=== PATIENT | female | born 1960 | race Caucasian/White ===

== ENCOUNTER → 2017-03-02 | Outpatient (CLI) | payer BC ==
[2015-11-20 15:16] VITALS: BP 105/72
[~2017-03-02] MED LIST: ALBU8.5H8 IH; ASPI-612 PO; ASPI325T8 PO; CYCL-331 PO; GABA-585 PO; IBUP-1227 PO; INDA2.5T PO; IRBE150T PO; LEVO125T5 PO; METO25TA9 PO; METO50TA2 PO; POLY17PO5 PO; POTA20PA PO; POTA20TA12 PO; PRED20TA PO; PROM118S2 PO; SIMV40TA PO; VALA1000 PO
--- NOTE | 2017-03-02 10:38 | RAD ---
Abdominal ultrasound, 03/02/2017: History: Right upper quadrant pain The gallbladder is within normal limits in size. There is no sonographic evidence of cholelithiasis. The gallbladder mccall are not thickened. No bile duct dilatation is seen. The liver demonstrates generalized increased echogenicity, most commonly due to fatty change. No hepatic mass is evident. The spleen measures 11.2 cm in length. The visualized portions of the pancreas and both kidneys are unremarkable. The abdominal aorta is of normal caliber. The visualized portions of the inferior vena cava are unremarkable. No free fluid is evident in the abdomen. IMPRESSION: 1. Increased hepatic echogenicity compatible with hepatic steatosis. 2. No acute abdominal abnormality is detected.
== END | disposition home or self-care (01) ==
LOC: US 09:15
PROVIDERS: ATTEND Family Medicine
DX: K76.0 Fatty (change of) liver, not elsewhere classified (principal)
CPT/HCPCS: 76700

== ENCOUNTER 2017-03-12 22:38 | Emergency (ER) | payer BC ==
[~2017-03-12] VITALS: Ht 167.6 cm; Wt 98.9 kg
--- NOTE | 2017-03-12 22:40 | ED.ADGEN ---
Past History Past Medical History: CHF, Hypertension, Other Past Surgical History: , Hysterectomy, Tonsillectomy Smoking: Non-smoker Alcohol Use: None Drug Use: None Adult General Chief Complaint Chief Complaint Right ankle injury HPI HPI Patient is a 57 year old female who presents with ankle injury. She was in her yard walking across of it and stepped in a hole that she knew was there. She fell forwards. She only complains about right ankle injury and high tib-fib pain on the right. She denies losing consciousness hitting her head or having neck pain. Review of Systems Review of Systems Constitutional: Denies fever or chills [] Eyes: Denies change in visual acuity, redness, or eye pain [] HENT: Denies nasal congestion or sore throat [] Respiratory: Denies cough or shortness of breath [] Cardiovascular: No additional information not addressed in HPI [] GI: Denies abdominal pain, nausea, vomiting, bloody stools or diarrhea [] : Denies dysuria or hematuria [] Musculoskeletal: Denies back pain, positive right ankle pain. Integument: Denies rash or skin lesions [] Neurologic: Denies headache, focal weakness or sensory changes [] Endocrine: Denies polyuria or polydipsia [] Current Medications Current Medications Current Medications Medications (Trade) Dose Ordered Sig/Nara Start Time Stop Time Status Last Admin Dose Admin Acetaminophen/ Hydrocodone Bitart (Lortab 5/325) 2 tab 1X ONCE 03/12/17 23:15 03/12/17 23:16 DC 03/12/17 23:04 2 TAB Allergies Allergies Allergies Coded Allergies Type Severity Reaction Last Updated Verified lisinopril Allergy Mild 11/19/15 Yes nifedipine Allergy Mild 11/19/15 Yes Physical Exam Physical Exam Constitutional: Well developed, well nourished, no acute distress, non-toxic appearance. [] HENT: Normocephalic, atraumatic, bilateral external ears normal, oropharynx moist, no oral exudates, nose normal. [] Eyes: PERRLA, EOMI, conjunctiva normal, no discharge. [] Neck: Normal range of motion, no tenderness, supple, no stridor. [] Cardiovascular:Heart rate regular rhythm, no murmur [] Lungs & Thorax: Bilateral breath sounds clear to auscultation [] Abdomen: Bowel sounds normal, soft, no tenderness, no masses, no pulsatile masses. [] Skin: Warm, dry, no erythema, no rash. [] Back: No tenderness, no CVA tenderness. [] Extremities: Tender to palpation with swelling of the right lateral malleolus, no obvious deformity, dorsal pedis pulse 2+, no cyanosis, no clubbing, ROM intact, no edema. [] Neurologic: Alert and oriented X 3, normal motor function, normal sensory function, no focal deficits noted. [] Psychologic: Affect normal, judgement normal, mood normal. [] Current Patient Data Vital Signs Vital Signs Date Time Temp Pulse Resp B/P (MAP) Pulse Ox O2 Delivery O2 Flow Rate FiO2 03/12/17 22:53 97.7 87 18 18 Room Air EKG EKG [] Radiology/Procedures Radiology/Procedures Reviews of the right tib-fib, 3 views of the right ankle does not show any fractures, foreign bodies, soft tissue abnormalities, as interpreted by me. Course & Med Decision Making Course & Med Decision Making Pertinent Labs and Imaging studies reviewed. (See chart for details) X-rays are negative for any obvious fractures, patient being discharged with an Aircast, crutches, [place]. She is instructed to follow-up with an orthopedic surgeon if not better within 5-7 days. Certainly not to drive a car or taking [place]. He also instructed on rest elevation and ice for the next 24 hours. Return precautions given she is agreeable Plan B discharged in stable condition this time. Final Impression Final Impression Right Ankle sprain Problems: Dragon Disclaimer Dragon Disclaimer This electronic medical record was generated, in whole or in part, using a voice recognition dictation system. NICOLE JOSHUA MD Mar 12, 2017 22:39
[2017-03-12 22:53] VITALS: BP 108/71
[2017-03-12] MEDS ORDERED: HYDROcodone/APAP 5/325MG 1 TAB TABLET PO ONE (23:15)
[2017-03-12] MEDS ORDERED: HYDR-971 PO (23:28)
--- NOTE | 2017-03-13 07:43 | RAD ---
Indication: Fall with severe right ankle and lower leg pain. Time of exam 2307 hours. 3 views of the right tibia and fibula were obtained. Alignment at the knee and ankle appears normal. The tibia and fibula appear intact. No fractures are seen. Impression: No acute bony abnormality is detected.
--- NOTE | 2017-03-13 07:45 | RAD ---
Indication: Fall with right ankle injury. Time of exam 2306 hours. 3 views of the right ankle were obtained. The alignment is normal. Ankle mortise is well-maintained. The talar dome is smooth. No fracture or dislocation is seen. There is a large plantar calcaneal spur. There may be some soft tissue swelling laterally. Impression: Soft tissue swelling. No acute bony abnormality is detected.
== END 2017-03-12 23:40 | disposition home or self-care (01) ==
LOC: ER 22:38
DX: S93.431A Sprain of tibiofibular ligament of right ankle, initial encounter (principal); I11.0 Hypertensive heart disease with heart failure; I50.9 Heart failure, unspecified; Z88.8 Allergy status to other drugs, medicaments and biological substances; Y92.096 Garden or yard of other non-institutional residence as the place of occurrence of the external cause; Y99.8 Other external cause status; Y93.01 Activity, walking, marching and hiking; W18.31XA Fall on same level due to stepping on an object, initial encounter
CPT/HCPCS: 29515; 73590; 73610; 99284

== ENCOUNTER → 2018-01-06 | Day surgery (SDC) | payer BC ==
[~2018-01-06] MED LIST changes: +ATROPINE 0.5 MG/5 ML DISP.SYRIN. IV PRN; +ESOM40CA PO; +HYDR-971 PO; +IV RINGERS SOLUTION,LACTATED 1,000 ML IV SCH; +LIDOCAINE 2% PF Vial for OR 5 ML VIAL. ONE; +METO-239 PO; -METO25TA9 PO; -METO50TA2 PO; +METO50TA6 PO; +MULT1TAB6 PO; +NALOXONE 0.4 MG/ML VIAL. IV PRN; +ONDANSETRON PF 4 MG/2 ML VIAL. IV PRN; +PROPOFOL 40 ML IV ONE
[2018-01-06 11:09] VITALS: BP 135/78
== END ==
LOC: SURG 09:07
PROVIDERS: ATTEND Internal Medicine Gastroenterology
DX: Z12.11 Encounter for screening for malignant neoplasm of colon (principal); K21.9 Gastro-esophageal reflux disease without esophagitis; I11.0 Hypertensive heart disease with heart failure; I50.9 Heart failure, unspecified; G47.30 Sleep apnea, unspecified; E78.5 Hyperlipidemia, unspecified; Z88.8 Allergy status to other drugs, medicaments and biological substances
CPT/HCPCS: 45378; J2704; J7120; J2001

== ENCOUNTER 2018-07-06 16:01 | Inpatient (IN) | payer BC ==
[~2018-07-06] VITALS: Ht 167.6 cm; Wt 98.9 kg
[~2018-07-06 16:01] MED LIST changes: -ATROPINE 0.5 MG/5 ML DISP.SYRIN. IV PRN; -IV RINGERS SOLUTION,LACTATED 1,000 ML IV SCH; -LIDOCAINE 2% PF Vial for OR 5 ML VIAL. ONE; -NALOXONE 0.4 MG/ML VIAL. IV PRN; -ONDANSETRON PF 4 MG/2 ML VIAL. IV PRN; -POTA20PA PO; +POTA20PA30 PO; -PROM118S2 PO; +PROM118S5 PO; -PROPOFOL 40 ML IV ONE
[2018-07-06 16:39] LABS: BASO % 0 % (0-3); EOS # 0.3 x10^3/uL (0.0-0.7); EOS % 3 % (0-3); HEMATOCRIT 40.2 % (36.0-47.0); HEMOGLOBIN 13.4 g/dL (12.0-15.5); LYMPH % 33 % (24-48); MEAN CORPUSCULAR HEMOGLOBIN 30 pg (25-35); MEAN CORPUSCULAR HGB CONC 33 g/dL (31-37); MEAN CORPUSCULAR VOLUME 91 fL (79-100); MONO # 0.7 x10^3/uL (0.0-1.1); MONO % 8 % (0-9); NEUT # 4.9 x10^3uL (1.8-7.7); NEUT % 55 % (31-73); PLATELET COUNT 249 x10^3/uL (140-400); RED BLOOD COUNT 4.44 x10^6/uL (3.50-5.40); RED CELL DISTRIBUTION WIDTH 14.8 % (11.5-14.5); WHITE BLOOD COUNT 8.9 x10^3/uL (4.0-11.0)
--- NOTE | 2018-07-06 16:50 | RAD ---
EXAM: CHEST 1 VIEW History: Shortness of breath COMPARISON: 11/19/2015 TECHNIQUE: Single portable radiograph of the chest FINDINGS: The cardiac silhouette is unremarkable. The lungs are clear bilaterally. The costophrenic sulci are clear and well demarcated. IMPRESSION: No radiographic evidence of an acute cardiopulmonary process. Electronically signed by: Julio César Story MD (07/06/2018 4:47 PM) [id number]
[2018-07-06 17:05] LABS: ALBUMIN 3.9 g/dL (3.4-5.0); ALBUMIN/GLOBULIN RATIO 0.9 (1.0-1.7); CALCIUM 9.5 mg/dL (8.5-10.1); CREATININE 0.9 mg/dL (0.6-1.0); GFR 64.5; MAGNESIUM 1.7 mg/dL (1.8-2.4); TOTAL BILIRUBIN 0.7 mg/dL (0.2-1.0); TOTAL PROTEIN 8.1 g/dL (6.4-8.2)
--- NOTE | 2018-07-06 17:28 | EKG ---
[address] [address] Test Date: 2018-07-06 Test Time: 16:04:32 Pat Name: MARI MANCERA Department: Room: Gender: F Billing Rep: : 1960 Requested By: SANCHEZ WINCHESTER Order Number: [id number] Reading MD: Jace Tan Measurements Intervals [place] Rate: 90 P: -32 FL: 164 QRS: 2 QRSD: 70 T: 3 QT: 390 QTc: 481 Interpretive Statements SINUS RHYTHM RIGHT BUNDLE BRANCH BLOCK ST ABNORMALITY, POSSIBLE HIGH LATERAL SUBENDOCARDIAL INJURY PROLONGED QT ABNORMAL ECG Electronically Signed On 07-11-2018 11:51:21 CDT by Jace Tan
[2018-07-06] MEDS ORDERED: MAGNESIUM OXIDE 400 MG TABLET PO ONE (17:30)
[2018-07-06] MEDS ORDERED: POTASSIUM CHLORIDE 20 MEQ TABLET.ER. PO ONE (17:30)
[2018-07-06] MEDS ORDERED: IOHEXOL 300 MG/ML 75 ML VIAL. IV ONE (17:45)
[2018-07-06] MEDS ORDERED: CONTRAST GIVEN MC PRN (18:00)
--- NOTE | 2018-07-06 18:01 | PHYS DOC ---
Past History Past Medical History: CHF, Heart Disease, Hypertension, Hypothyroid Past Surgical History: Hysterectomy, Tonsillectomy Smoking: Non-smoker Alcohol Use: Rarely Drug Use: None Adult General Chief Complaint Chief Complaint: CHEST PAIN HPI HPI Patient is a 58 year old female who presents with appearing of chest pain and shortness of breath. Patient states she was at fourth and at 1500 felt sudden onset of substernal chest pain with radiation to her back associated with shortness of breath and not feeling good that resolved at arrival to ER but still doesn't feel right like her normal condition. Patient has history of hypertension and prediabetes condition with family history of coronary artery disease. Review of Systems Review of Systems Constitutional: Denies fever or chills [] Eyes: Denies change in visual acuity, redness, or eye pain [] HENT: Denies nasal congestion or sore throat [] Respiratory: Denies cough or shortness of breath [] Cardiovascular: No additional information not addressed in HPI [] GI: Denies abdominal pain, nausea, vomiting, bloody stools or diarrhea [] : Denies dysuria or hematuria [] Musculoskeletal: Denies back pain or joint pain [] Integument: Denies rash or skin lesions [] Neurologic: Denies headache, focal weakness or sensory changes [] Endocrine: Denies polyuria or polydipsia [] All other systems were reviewed and found to be within normal limits, except as documented in this note. Current Medications Current Medications Current Medications Medications (Trade) Dose Ordered Sig/Nara Start Time Stop Time Status Last Admin Dose Admin Iohexol (Omnipaque 300 Mg/ml) 75 ml 1X ONCE 07/06/18 17:45 07/06/18 17:46 UNV Magnesium Oxide (Magnesium Oxide) 400 mg 1X ONCE 07/06/18 17:30 07/06/18 17:31 DC Potassium Chloride (Klor-Con) 40 meq 1X ONCE 07/06/18 17:30 07/06/18 17:31 DC Allergies Allergies Allergies Coded Allergies Type Severity Reaction Last Updated Verified lisinopril Allergy Mild 11/19/15 Yes nifedipine Allergy Mild 11/19/15 Yes Physical Exam Physical Exam Constitutional: Well developed, well nourished, mild distress, non-toxic appearance. [] HENT: Normocephalic, atraumatic, oropharynx moist, no oral exudates, nose normal. [] Eyes: PERRLA, EOMI, conjunctiva normal, no discharge. [] Neck: Normal range of motion, no tenderness, supple, no stridor. [] Cardiovascular:Heart rate regular rhythm, no murmur [] Lungs & Thorax: Bilateral breath sounds clear to auscultation [] Abdomen: Bowel sounds normal, soft, no tenderness, no masses, no pulsatile masses. [] Skin: Warm, dry, no erythema, no rash. [] Back: No tenderness, no CVA tenderness. [] Extremities: No tenderness, no cyanosis, no clubbing, ROM intact, no edema. [] Neurologic: Alert and oriented X 3, normal motor function, normal sensory function, no focal deficits noted. [] Psychologic: Affect normal, judgement normal, mood normal. [] Current Patient Data Vital Signs Vital Signs Date Time Temp Pulse Resp B/P (MAP) Pulse Ox O2 Delivery O2 Flow Rate FiO2 07/06/18 16:35 97.7 93 18 96 Room Air Lab Results Laboratory Tests Test 07/06/18 16:23 White Blood Count 8.9 x10^3/uL (4.0-11.0) Red Blood Count 4.44 x10^6/uL (3.50-5.40) Hemoglobin 13.4 g/dL (12.0-15.5) Hematocrit 40.2 % (36.0-47.0) Mean Corpuscular Volume 91 fL (79-100) Mean Corpuscular Hemoglobin 30 pg (25-35) Mean Corpuscular Hemoglobin Concent 33 g/dL (31-37) Red Cell Distribution Width 14.8 % (11.5-14.5) H Platelet Count 249 x10^3/uL (140-400) Neutrophils (%) (Auto) 55 % (31-73) Lymphocytes (%) (Auto) 33 % (24-48) Monocytes (%) (Auto) 8 % (0-9) Eosinophils (%) (Auto) 3 % (0-3) Basophils (%) (Auto) 0 % (0-3) Neutrophils # (Auto) 4.9 x10^3uL (1.8-7.7) Lymphocytes # (Auto) 3.0 x10^3/uL (1.0-4.8) Monocytes # (Auto) 0.7 x10^3/uL (0.0-1.1) Eosinophils # (Auto) 0.3 x10^3/uL (0.0-0.7) Basophils # (Auto) 0.0 x10^3/uL (0.0-0.2) D-Dimer (Tawny) 0.53 mg/L (0.00-0.50) H Sodium Level 141 mmol/L (136-145) Potassium Level 3.0 mmol/L (3.5-5.1) L Chloride Level 101 mmol/L (98-107) Carbon Dioxide Level 33 mmol/L (21-32) H Anion Gap 7 (6-14) Blood Urea Nitrogen 18 mg/dL (7-20) Creatinine 0.9 mg/dL (0.6-1.0) Estimated GFR (Cockcroft-Gault) 64.5 BUN/Creatinine Ratio 20 (6-20) Glucose Level 196 mg/dL (70-99) H Calcium Level 9.5 mg/dL (8.5-10.1) Magnesium Level 1.7 mg/dL (1.8-2.4) L Total Bilirubin 0.7 mg/dL (0.2-1.0) Aspartate Amino Transferase (AST) 37 U/L (15-37) Alanine Aminotransferase (ALT) 58 U/L (14-59) Alkaline Phosphatase 88 U/L (46-116) Creatine Kinase 138 U/L (26-192) Troponin I Quantitative < 0.017 ng/mL (0-0.055) AS-Ydu-G-Type Natriuretic Peptide 19 pg/mL (0-124) Total Protein 8.1 g/dL (6.4-8.2) Albumin 3.9 g/dL (3.4-5.0) Albumin/Globulin Ratio 0.9 (1.0-1.7) L Lipase 122 U/L (73-393) EKG EKG EKG interpreted by me. EKG at 1604 showed normal sinus rhythm at rate of 90, prolonged QT, nonspecific ST and T wave abnormality unchanged from the previous EKG on 11/19/2015 Radiology/Procedures Radiology/Procedures [address] [address] IMAGING REPORT Signed PATIENT: MARI MANCERA S ACCOUNT: [id number] : 1960 LOCATION: ER AGE: 58 SEX: F EXAM STATUS: REG ER ORD. PHYSICIAN: SANCHEZ WINCHESTER MD REASON: chest pain and shortness of breath PROCEDURE: PORTABLE CHEST 1V EXAM: CHEST 1 VIEW History: Shortness of breath COMPARISON: 11/19/2015 TECHNIQUE: Single portable radiograph of the chest FINDINGS: The cardiac silhouette is unremarkable. The lungs are clear bilaterally. The costophrenic sulci are clear and well demarcated. IMPRESSION: No radiographic evidence of an acute cardiopulmonary process. Electronically signed by: Julio César Koenig MD (07/06/2018 4:47 PM) [id number] DICTATED AND SIGNED BY: JULIO CÉSAR KOENIG MD DATE: 07/06/18 1646 CC: MANJIT POLO MD; SANCHEZ WINCHESTER MD ~ Course & Med Decision Making Course & Med Decision Making Pertinent Labs and Imaging studies reviewed. (See chart for details) Evaluation of patient in ER showed 58-year-old female patient with several cardiac risk factor with complaining of chest pain and shortness of breath that resolved at arrival to ER but not feeling right hip normal. New change since EKG did not show any new change from the EKG in 2016. She had potassium of 3.0 and magnesium of 1.7 and elevation of d-dimer with pending CT of chest. Patient treated with oral potassium and magnesium Dr. Carrasco accepted admission at 1718. Dragon Disclaimer Dragon Disclaimer This electronic medical record was generated, in whole or in part, using a voice recognition dictation system. Departure Departure: Impression: Primary Impression: Acute chest pain Additional Impressions: Hypokalemia Hypomagnesemia Elevated d-dimer Hyperglycemia Disposition: ADMITTED INPATIENT (admitted at 1751) Admitting Physician: Other (Dr. Gregorio Carrasco accepted admission at 1750) Condition: IMPROVED Referrals: MANJIT POLO MD (PCP) Problem Qualifiers SANCHEZ WINCHESTER MD Jul 06, 2018 18:01
--- NOTE | 2018-07-06 18:59 | RAD ---
Exam performed: CT pulmonary angiogram of the chest with contrast. Date: 07/06/2018. Comparison: CT angiogram chest from 11/29/2015) chest from earlier today Indication: Chest pain and elevated d-dimer and shortness of breath. Technique: Contiguous helical acquisitions are obtained through the chest during intravenous administration of [ 75 ] cc of [ Omnipaque 300 ] . [Sagittal and coronal MIP images were obtained and reviewed Findings: The structures at the thoracic inlet including both lobes of the thyroid gland appear normal. Pulmonary arterial opacification is adequate to evaluate for pulmonary embolus. There is no evidence for pulmonary embolism. The heart is normal in size. No pericardial effusion is seen. No mediastinal or hilar lymphadenopathy is seen. There is a linear left basilar opacity likely atelectasis, otherwise No infiltrates or pleural effusions are seen. No pulmonary nodules are detected. Upper abdominal structures appear unremarkable. Osseous structures appear intact. Impression: 1. Study is negative for pulmonary embolism. 2. Linear left basilar atelectasis otherwise unremarkable exam. PQRS Compliance Statement: One or more of the following individualized dose reduction techniques were utilized for this examination: 1. Automated exposure control 2. Adjustment of the mA and/or kV according to patient size 3. Use of iterative reconstruction technique Electronically signed by: Marita Leon MD (07/06/2018 6:55 PM) [facility]
[2018-07-06 20:08] VITALS: BP 149/98
[2018-07-06] MEDS ORDERED: POTA20TA4 PO (20:18)
[2018-07-06] MEDS ORDERED: INDA2.5T PO (20:18)
[2018-07-06] MEDS ORDERED: ACETAMINOPHEN 500 MG TABLET PO PRN (21:30)
[2018-07-06] MEDS: POTASSIUM CHLORIDE 20 MEQ TABLET.ER. PO SCH (21:30)
[2018-07-06 21:49] VITALS: BP 106/68
[2018-07-06] MEDS: SIMVASTATIN 40 MG TABLET. PO SCH (21:57)
[2018-07-06] MEDS: METOPROLOL SUCC 24HR ER 25 MG TAB.ER.24H. PO SCH (21:58)
[2018-07-06 22:39] VITALS: BP 103/67
[2018-07-07 04:39] LABS: BASO % 0 % (0-3); EOS # 0.3 x10^3/uL (0.0-0.7); EOS % 4 % (0-3); HEMATOCRIT 39.7 % (36.0-47.0); HEMOGLOBIN 13.3 g/dL (12.0-15.5); LYMPH # 3.1 x10^3/uL (1.0-4.8); LYMPH % 36 % (24-48); MEAN CORPUSCULAR HEMOGLOBIN 30 pg (25-35); MEAN CORPUSCULAR HGB CONC 34 g/dL (31-37); MEAN CORPUSCULAR VOLUME 91 fL (79-100); MONO # 0.6 x10^3/uL (0.0-1.1); MONO % 7 % (0-9); NEUT # 4.6 x10^3uL (1.8-7.7); NEUT % 53 % (31-73); PLATELET COUNT 236 x10^3/uL (140-400); RED BLOOD COUNT 4.38 x10^6/uL (3.50-5.40); RED CELL DISTRIBUTION WIDTH 14.7 % (11.5-14.5); WHITE BLOOD COUNT 8.6 x10^3/uL (4.0-11.0)
[2018-07-07 04:52] LABS: ALBUMIN 3.5 g/dL (3.4-5.0); ALBUMIN/GLOBULIN RATIO 0.9 (1.0-1.7); CALCIUM 9.7 mg/dL (8.5-10.1); CREATININE 0.9 mg/dL (0.6-1.0); GFR 64.5; TOTAL BILIRUBIN 0.8 mg/dL (0.2-1.0); TOTAL PROTEIN 7.6 g/dL (6.4-8.2)
[2018-07-07 05:03] VITALS: BP 121/74
[2018-07-07] MEDS: LEVOTHYROXINE 125 MCG TABLET PO SCH (06:58)
[2018-07-07] MEDS ORDERED: PANTOPRAZOLE 40 MG TABLET. PO SCH (09:00)
[2018-07-07] MEDS: POLYETHYLENE GLYCOL 3350 17 GM PACKET. PO SCH (09:00)
--- NOTE | 2018-07-07 09:33 | PDOC2 ---
CONSULT Date of Admission DATE: 07/07/18 TIME: 09:29 Reason for Consult: cp Problem List Problems Medical Problems: (1) Acute chest pain Status: Acute (2) Elevated d-dimer Status: Acute (3) Hyperglycemia Status: Acute (4) Hypokalemia Status: Acute (5) Hypomagnesemia Status: Acute History of Present Illness Ms Ho is a 58 year old female who presents with complaints of chest discomfort. She was at work ([employer]) when she began to have mild chest pressure, felt hot, face was flushed, nauseated and short of breath. She describes pressure mid to right chest without radiation and feeling like she could not get a deep enough breath. She reports symptoms lasted about 20 minutes and resolved spontaneously just prior to arrival to the ED. She reports dyspnea on exertion with 1 flight of stairs over the last year. About 6 months ago she began taking the elevator at work rather than the stairs for this reason. She denies symptoms with ADLs. She does no regular exercise. She denies any prior symptoms of chest discomfort that she can remember. she reports occasional episodes of lightheadedness that she thought was related to not eating but denies any syncope. She denies any significant symptoms of palpitations. She denies congestive symptoms but does report swelling in her feet and legs often. Cardiovascular: CHF, HTN, hyperipidemia Pulmonary: Other (ALVARO) GI: GERD Endocrine: Hypothyroidism, Other (low blood sugar) Past Surgical History: , Hysterectomy Family History: Cancer, Coronary Artery Disease, Diabetes, Hypertension Social History remote history of tobaccoism, no significant ETOH, no illicit drugs. Current Medications Current Medications Potassium Chloride (Klor-Con) 40 meq 1X ONCE PO Last administered on at 17:30; Start 07/06/18 at 17:30; Stop 07/06/18 at 17:31; Status DC Magnesium Oxide (Magnesium Oxide) 400 mg 1X ONCE PO Last administered on at 18:06; Start 07/06/18 at 17:30; Stop 07/06/18 at 17:31; Status DC Iohexol (Omnipaque 300 Mg/ml) 75 ml 1X ONCE IV Last administered on 07/06/18at 18:01; Start 07/06/18 at 17:45; Stop 07/06/18 at 17:53; Status DC Info (Do NOT chart on this entry -- for MONITORING) 1 each PRN DAILY PRN MC SEE COMMENTS; Start 07/06/18 at 18:00; Stop 07/08/18 at 17:59 Acetaminophen (Tylenol) 500 mg PRN Q6HRS PRN PO PAIN / TEMP; Start 07/06/18 at 21:30 Metoprolol Succinate (Toprol Xl) 25 mg BID PO Last administered on 07/06/18at 21 :58; Start 07/06/18 at 21:30 Potassium Chloride (Klor-Con) 20 meq TID PO ; Start 07/06/18 at 21:30 Simvastatin (Zocor) 40 mg HS PO Last administered on 07/06/18at 21:57; Start at 21:30 Aspirin (Aspirin Enteric Coated) 81 mg DAILYWBKFT PO ; Start 07/07/18 at 08:00 Pantoprazole Sodium (Protonix) 40 mg QODAY PO ; Start 07/07/18 at 09:00 Indapamide (Lozol) 5 mg DAILY PO ; Start 07/07/18 at 09:00 Losartan Potassium (Cozaar) 50 mg DAILY PO ; Start 07/07/18 at 09:00 Levothyroxine Sodium (Synthroid) 125 mcg DAILY07 PO Last administered on at 06:58; Start 07/07/18 at 07:00 Polyethylene Glycol (miraLAX) 17 gm DAILY PO ; Start 07/07/18 at 09:00 Influenza Virus Vaccine (Afluria Trivalent [id number] Syringe) 0.5 ml ONCE ONCE VAX IM ; Start 07/07/18 at 09:00; Stop 07/07/18 at 09:01; Status DC Active Scripts Active Metoprolol Succinate ( Xl ) (Metoprolol Succinate) 25 Mg Tab.er.24h 25 Mg PO BID Reported Indapamide 2.5 Mg Tablet 5 Mg PO DAILY Klor-Con M20 (Potassium Chloride) 20 Meq Tab.er.prt 20 Meq PO TID Centrum Complete Multivit Tab (Multivitamin/Iron/Folic Acid) 1 Each Tablet 1 Each PO Miralax (Polyethylene Glycol 3350) 17 Gm Powd.pack 1 Packet PO DAILY Nexium Capsule (Esomeprazole Magnesium) 40 Mg Capsule.dr 1 Cap PO QODAY Avapro (Irbesartan) 150 Mg Tablet 150 Mg PO DAILY LAST DOSE GIVEN: DATE: TODAY TIME: AM NEXT DOSE DUE: DATE: TOMORROW TIME: AM Levothyroxine Sodium 125 Mcg Tablet 125 Mcg PO DAILY07 LAST DOSE GIVEN: DATE: TODAY TIME: BEFORE BREAKFAST NEXT DOSE DUE: DATE: TOMORROW TIME: BEFORE BREAKFAST Zocor (Simvastatin) 40 Mg Tablet 40 Mg PO HS Aspirin Ec (Aspirin) 81 Mg Tablet.dr 1 Tab PO DAILY LAST DOSE GIVEN: DATE: TODAY TIME: AM NEXT DOSE DUE: DATE: TOMORROW TIME: AM Allergies: Coded Allergies: lisinopril (Verified Allergy, Mild, 11/19/15) nifedipine (Verified Allergy, Mild, 11/19/15) Review of System as per HPI or negative General: Alert, Oriented X3, Cooperative, No acute distress HEENT: Atraumatic, EOMI, Mucous membr. moist/pink Lungs: Clear to auscultation Heart: Regular rate, Normal S1, Normal S2, Other (no gallops, clicks or rubs) Abdomen: Normal bowel sounds, Soft, No tenderness Extremities: No cyanosis, Normal pulses, Other (trace edema) Neuro: Normal speech, Strength at 5/5 X4 ext Psych/Mental Status: Mental status NL, Mood NL VITALS Vital Signs Date Time Temp Pulse Resp B/P (MAP) Pulse Ox O2 Delivery O2 Flow Rate FiO2 07/07/18 05:03 97.6 63 18 121/74 (90) 93 Room Air 07/06/18 22:39 2.0 Labs Laboratory Tests Test 07/06/18 16:23 07/06/18 20:15 07/06/18 22:13 07/07/18 04:26 White Blood Count 8.9 x10^3/uL (4.0-11.0) 8.6 x10^3/uL (4.0-11.0) Red Blood Count 4.44 x10^6/uL (3.50-5.40) 4.38 x10^6/uL (3.50-5.40) Hemoglobin 13.4 g/dL (12.0-15.5) 13.3 g/dL (12.0-15.5) Hematocrit 40.2 % (36.0-47.0) 39.7 % (36.0-47.0) Mean Corpuscular Volume 91 fL (79-100) 91 fL (79-100) Mean Corpuscular Hemoglobin 30 pg (25-35) 30 pg (25-35) Mean Corpuscular Hemoglobin Concent 33 g/dL (31-37) 34 g/dL (31-37) Red Cell Distribution Width 14.8 % (11.5-14.5) 14.7 % (11.5-14.5) Platelet Count 249 x10^3/uL (140-400) 236 x10^3/uL (140-400) Neutrophils (%) (Auto) 55 % (31-73) 53 % (31-73) Lymphocytes (%) (Auto) 33 % (24-48) 36 % (24-48) Monocytes (%) (Auto) 8 % (0-9) 7 % (0-9) Eosinophils (%) (Auto) 3 % (0-3) 4 % (0-3) Basophils (%) (Auto) 0 % (0-3) 0 % (0-3) Neutrophils # (Auto) 4.9 x10^3uL (1.8-7.7) 4.6 x10^3uL (1.8-7.7) Lymphocytes # (Auto) 3.0 x10^3/uL (1.0-4.8) 3.1 x10^3/uL (1.0-4.8) Monocytes # (Auto) 0.7 x10^3/uL (0.0-1.1) 0.6 x10^3/uL (0.0-1.1) Eosinophils # (Auto) 0.3 x10^3/uL (0.0-0.7) 0.3 x10^3/uL (0.0-0.7) Basophils # (Auto) 0.0 x10^3/uL (0.0-0.2) 0.0 x10^3/uL (0.0-0.2) D-Dimer (Tawny) 0.53 mg/L (0.00-0.50) Sodium Level 141 mmol/L (136-145) 143 mmol/L (136-145) Potassium Level 3.0 mmol/L (3.5-5.1) 4.0 mmol/L (3.5-5.1) Chloride Level 101 mmol/L (98-107) 102 mmol/L (98-107) Carbon Dioxide Level 33 mmol/L (21-32) 34 mmol/L (21-32) Anion Gap 7 (6-14) 7 (6-14) Blood Urea Nitrogen 18 mg/dL (7-20) 18 mg/dL (7-20) Creatinine 0.9 mg/dL (0.6-1.0) 0.9 mg/dL (0.6-1.0) Estimated GFR (Cockcroft-Gault) 64.5 64.5 BUN/Creatinine Ratio 20 (6-20) 20 (6-20) Glucose Level 196 mg/dL (70-99) 112 mg/dL (70-99) Calcium Level 9.5 mg/dL (8.5-10.1) 9.7 mg/dL (8.5-10.1) Magnesium Level 1.7 mg/dL (1.8-2.4) Total Bilirubin 0.7 mg/dL (0.2-1.0) 0.8 mg/dL (0.2-1.0) Aspartate Amino Transf (AST/SGOT) 37 U/L (15-37) 34 U/L (15-37) Alanine Aminotransferase (ALT/SGPT) 58 U/L (14-59) 53 U/L (14-59) Alkaline Phosphatase 88 U/L (46-116) 80 U/L (46-116) Creatine Kinase 138 U/L (26-192) Troponin I Quantitative < 0.017 ng/mL (0-0.055) < 0.017 ng/mL (0-0.055) < 0.017 ng/mL (0-0.055) HE-Ika-L-Type Natriuretic Peptide 19 pg/mL (0-124) Total Protein 8.1 g/dL (6.4-8.2) 7.6 g/dL (6.4-8.2) Albumin 3.9 g/dL (3.4-5.0) 3.5 g/dL (3.4-5.0) Albumin/Globulin Ratio 0.9 (1.0-1.7) 0.9 (1.0-1.7) Lipase 122 U/L (73-393) Glucose (Fingerstick) 94 mg/dL (70-99) Images CTA negative for PE CXR no acute abn EKG - sinus rhythm, RBBB, non specific abn Assessment/Plan 1. chest pain - ID ruled out. check echo. ambulate. NPO after midnight, no caffeine starting now and plan for MPI in am. Continue current medications to include beta halley, aspirin, statin. 2. abn ekg - no acute ischemic changes, MPI in am 3. HTN - controlled on current meds though she reported elevated pressure 170s during her cp episode. 4. HLD - check lipids, continue statin. 5. prediabetes - per [employer] ROB[employer] Jul 07, 2018 09:33
[2018-07-07 10:28] VITALS: BP 134/83
[2018-07-07] MEDS: ASPIRIN ENTERIC COATED 81 MG TABLET.DR. PO SCH (10:30)
[2018-07-07] MEDS: POTASSIUM CHLORIDE 20 MEQ TABLET.ER. PO SCH ×3 (10:30→20:21)
[2018-07-07] MEDS: LOSARTAN 50 MG TABLET. PO SCH (10:30)
[2018-07-07] MEDS: INDAPAMIDE 1.25 MG TABLET PO SCH (10:31)
[2018-07-07] MEDS: METOPROLOL SUCC 24HR ER 25 MG TAB.ER.24H. PO SCH ×2 (10:31→20:22)
[2018-07-07 16:36] VITALS: BP 122/81
--- NOTE | 2018-07-07 17:30 | PDOC1 ---
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 She states that while she was working on a patient she had a sudden onset of chest pressure radiating to her back, she became nauseous with shortness of breath and her face became flushed. Symptoms force her to stop working and leave the treatment room, the dentists checked her blood pressure which she says was markedly elevated at the time. They urged her to go to the emergency department for evaluation. She did not want to go by [facility] and she called her spouse who came and picked her up, symptoms lasted approximately 20 minutes and resolved prior to arriving at the emergency department. In the emergency department her EKG was reportedly normal sinus rhythm at 90 bpm with prolonged QT and nonspecific ST T changes.(Unchanged from 11/19/15 study). Chest x-ray unremarkable , potassium 3.0, magnesium 1.7, d-dimer 0.53. Due to her symptoms and risk factors she was admitted for further evaluation and cardiology consultation. Overnight with supplementation her potassium improved to 4.0, cardiac enzymes came back negative 3 and LDL elevated at 147. Cardiology has scheduled stress test for tomorrow morning. Past Medical History: Cardiovascular: CHF, HTN, hyperipidemia Pulmonary: Other (obstructive sleep apnea) GI: GERD Endocrine: Hypothyroidism, Other ("prediabetes", obesity) Past Surgical History: PSH: section Family History: Family History Coronary artery disease, diabetes Family History: Cancer, Coronary Artery Disease, Diabetes, Hypertension Social History: Smoke: Quit Alcohol: none Drugs: None Allergies: Allergies: Coded Allergies: lisinopril (Verified Allergy, Mild, 11/19/15) nifedipine (Verified Allergy, Mild, 11/19/15) Current Medications: Current Medications: Current Medications Medications (Trade) Dose Ordered Sig/Nara Start Time Stop Time Status Last Admin Dose Admin Acetaminophen (Tylenol) 500 mg PRN Q6HRS PRN 07/06/18 21:30 07/07/18 13:12 500 MG Aspirin (Aspirin Enteric Coated) 81 mg DAILYWBKFT 07/07/18 08:00 07/07/18 10:30 81 MG Indapamide (Lozol) 5 mg DAILY 07/07/18 09:00 07/07/18 10:31 5 MG Influenza Virus Vaccine (Afluria Trivalent [id number] Syringe) 0.5 ml ONCE ONCE 07/07/18 09:00 07/07/18 09:01 DC 07/07/18 10:49 0.5 ML Info (Do NOT chart on this entry -- for MONITORING) 1 each PRN DAILY PRN 07/06/18 18:00 07/08/18 17:59 Iohexol (Omnipaque 300 Mg/ml) 75 ml 1X ONCE 07/06/18 17:45 07/06/18 17:53 DC 07/06/18 18:01 75 ML Levothyroxine Sodium (Synthroid) 125 mcg DAILY07 07/07/18 07:00 07/07/18 06:58 125 MCG Losartan Potassium (Cozaar) 50 mg DAILY 07/07/18 09:00 07/07/18 10:30 50 MG Magnesium Oxide (Magnesium Oxide) 400 mg 1X ONCE 07/06/18 17:30 07/06/18 17:31 DC 07/06/18 18:06 400 MG Metoprolol Succinate (Toprol Xl) 25 mg BID 07/06/18 21:30 07/07/18 10:31 25 MG Pantoprazole Sodium (Protonix) 40 mg QODAY 07/07/18 09:00 07/07/18 10:30 40 MG Polyethylene Glycol (miraLAX) 17 gm DAILY 07/07/18 09:00 Potassium Chloride (Klor-Con) 20 meq TID 07/06/18 21:30 07/07/18 15:16 20 MEQ Simvastatin (Zocor) 40 mg HS 07/06/18 21:30 07/06/18 21:57 40 MG ROS: ROS: Constitutional: Denies fever or chills [] Eyes: Denies change in visual acuity, redness, or eye pain [] HENT: Denies nasal congestion or sore throat [] Respiratory: Denies cough positive shortness of breath [] Cardiovascular: No additional information not addressed in HPI [] GI: Denies abdominal pain, vomiting, bloody stools or diarrhea, positive for nausea [] : Denies dysuria or hematuria [] Musculoskeletal: Denies back pain or joint pain [] Integument: Denies rash or skin lesions [] Neurologic: Denies headache, focal weakness or sensory changes [] Endocrine: Denies polyuria or polydipsia [] All other systems were reviewed and found to be within normal limits, except as documented in this note. PE: PE: Gen.: Alert, pleasant, no apparent distress HEENT: Normocephalic atraumatic, PERRLA EOMI, no scleral icterus, oral mucosa pink and moist Neck: Supple, no lymphadenopathy, nontender Cardiovascular: Normal S1 and S2 no murmurs Pulmonary: Lungs are clear bilaterally with good air movement no respiratory distress Abdomen: Soft nontender non-distended, bowel sounds present no masses Extremities: No clubbing, cyanosis trace edema bilaterally Neuro: Alert and oriented 3, cranial nerves II through XII grossly intact, no lateralizing neuro deficits Skin: Warm, dry Vitals: Vitals: Vital Signs Date Time Temp Pulse Resp B/P (MAP) Pulse Ox O2 Delivery O2 Flow Rate FiO2 07/07/18 16:36 98.2 65 18 122/81 (95) 94 Room Air 07/07/18 10:28 2.0 Labs: Labs: Laboratory Tests Test 07/06/18 16:23 07/06/18 20:15 07/06/18 22:13 07/07/18 04:26 White Blood Count 8.9 x10^3/uL (4.0-11.0) 8.6 x10^3/uL (4.0-11.0) Red Blood Count 4.44 x10^6/uL (3.50-5.40) 4.38 x10^6/uL (3.50-5.40) Hemoglobin 13.4 g/dL (12.0-15.5) 13.3 g/dL (12.0-15.5) Hematocrit 40.2 % (36.0-47.0) 39.7 % (36.0-47.0) Mean Corpuscular Volume 91 fL (79-100) 91 fL (79-100) Mean Corpuscular Hemoglobin 30 pg (25-35) 30 pg (25-35) Mean Corpuscular Hemoglobin Concent 33 g/dL (31-37) 34 g/dL (31-37) Red Cell Distribution Width 14.8 % (11.5-14.5) 14.7 % (11.5-14.5) Platelet Count 249 x10^3/uL (140-400) 236 x10^3/uL (140-400) Neutrophils (%) (Auto) 55 % (31-73) 53 % (31-73) Lymphocytes (%) (Auto) 33 % (24-48) 36 % (24-48) Monocytes (%) (Auto) 8 % (0-9) 7 % (0-9) Eosinophils (%) (Auto) 3 % (0-3) 4 % (0-3) Basophils (%) (Auto) 0 % (0-3) 0 % (0-3) Neutrophils # (Auto) 4.9 x10^3uL (1.8-7.7) 4.6 x10^3uL (1.8-7.7) Lymphocytes # (Auto) 3.0 x10^3/uL (1.0-4.8) 3.1 x10^3/uL (1.0-4.8) Monocytes # (Auto) 0.7 x10^3/uL (0.0-1.1) 0.6 x10^3/uL (0.0-1.1) Eosinophils # (Auto) 0.3 x10^3/uL (0.0-0.7) 0.3 x10^3/uL (0.0-0.7) Basophils # (Auto) 0.0 x10^3/uL (0.0-0.2) 0.0 x10^3/uL (0.0-0.2) D-Dimer (Tawny) 0.53 mg/L (0.00-0.50) Sodium Level 141 mmol/L (136-145) 143 mmol/L (136-145) Potassium Level 3.0 mmol/L (3.5-5.1) 4.0 mmol/L (3.5-5.1) Chloride Level 101 mmol/L (98-107) 102 mmol/L (98-107) Carbon Dioxide Level 33 mmol/L (21-32) 34 mmol/L (21-32) Anion Gap 7 (6-14) 7 (6-14) Blood Urea Nitrogen 18 mg/dL (7-20) 18 mg/dL (7-20) Creatinine 0.9 mg/dL (0.6-1.0) 0.9 mg/dL (0.6-1.0) Estimated GFR (Cockcroft-Gault) 64.5 64.5 BUN/Creatinine Ratio 20 (6-20) 20 (6-20) Glucose Level 196 mg/dL (70-99) 112 mg/dL (70-99) Calcium Level 9.5 mg/dL (8.5-10.1) 9.7 mg/dL (8.5-10.1) Magnesium Level 1.7 mg/dL (1.8-2.4) Total Bilirubin 0.7 mg/dL (0.2-1.0) 0.8 mg/dL (0.2-1.0) Aspartate Amino Transf (AST/SGOT) 37 U/L (15-37) 34 U/L (15-37) Alanine Aminotransferase (ALT/SGPT) 58 U/L (14-59) 53 U/L (14-59) Alkaline Phosphatase 88 U/L (46-116) 80 U/L (46-116) Creatine Kinase 138 U/L (26-192) Troponin I Quantitative < 0.017 ng/mL (0-0.055) < 0.017 ng/mL (0-0.055) < 0.017 ng/mL (0-0.055) HA-Hky-Z-Type Natriuretic Peptide 19 pg/mL (0-124) Total Protein 8.1 g/dL (6.4-8.2) 7.6 g/dL (6.4-8.2) Albumin 3.9 g/dL (3.4-5.0) 3.5 g/dL (3.4-5.0) Albumin/Globulin Ratio 0.9 (1.0-1.7) 0.9 (1.0-1.7) Lipase 122 U/L (73-393) Glucose (Fingerstick) 94 mg/dL (70-99) Triglycerides Level 109 mg/dL (0-150) Cholesterol Level 212 mg/dL (0-200) LDL Cholesterol, Calculated 147 mg/dL (0-100) VLDL Cholesterol, Calculated 21 mg/dL (0-40) Non-HDL Cholesterol Calculated 168 mg/dL (0-129) HDL Cholesterol 44 mg/dL (40-60) Cholesterol/HDL Ratio 4.0 Images: Images: PATIENT: MARI MANCREA ACCOUNT: [id number] : 1960 LOCATION: ER AGE: 58 SEX: F EXAM STATUS: REG ER ORD. PHYSICIAN: SANCHEZ WINCHESTER MD REASON: substernal chest pain and shortness of breath and elevated d-dime PROCEDURE: CT ANGIOGRAPHY CHEST Exam performed: CT pulmonary angiogram of the chest with contrast. Date: 07/06/2018. Comparison: CT angiogram chest from 11/29/2015) chest from earlier today Indication: Chest pain and elevated d-dimer and shortness of breath. Technique: Contiguous helical acquisitions are obtained through the chest during intravenous administration of [ 75 ] cc of [ Omnipaque 300 ] . [Sagittal and coronal MIP images were obtained and reviewed Findings: The structures at the thoracic inlet including both lobes of the thyroid gland appear normal. Pulmonary arterial opacification is adequate to evaluate for pulmonary embolus. There is no evidence for pulmonary embolism. The heart is normal in size. No pericardial effusion is seen. No mediastinal or hilar lymphadenopathy is seen. There is a linear left basilar opacity likely atelectasis, otherwise No infiltrates or pleural effusions are seen. No pulmonary nodules are detected. Upper abdominal structures appear unremarkable. Osseous structures appear intact. Impression: 1. Study is negative for pulmonary embolism. 2. Linear left basilar atelectasis otherwise unremarkable exam. PQRS Compliance Statement: One or more of the following individualized dose reduction techniques were utilized for this examination: 1. Automated exposure control 2. Adjustment of the mA and/or kV according to patient size 3. Use of iterative reconstruction technique Electronically signed by: Marita Leon MD (07/06/2018 6:55 PM) [facility] DICTATED AND SIGNED BY: MARITA LEON MD DATE: 07/06/18 1849 CC: MANJIT POLO MD; SANCHEZ WINCHESTER MD ~ VTE Prophylaxis: VTE Prophylaxis Devices: No VTE Pharmacological Prophylaxi: No (patient is ambulatory) Assessment/Plan: A/P: Chest pain with risk factors for coronary artery disease: Cardiac enzymes negative plan for stress test in the morning Hypokalemia and hypomagnesemia: Potassium improved to 4.0 with supplementation Elevated d-dimer: CTA of the chest negative for PE Hyperglycemia: Implement sliding scale insulin, check hemoglobin A1c Hyperlipidemia: per Cardio Hypothyroidism: Check TSH GABY FIGUEROA DO Jul 07, 2018 17:30
--- NOTE | 2018-07-07 18:20 | CARD ---
MR#: [id number] Date of Study: 07/07/2018 Ordering Physician: BOB HAWKINS, Referring Physician: GABY FIGUEROA Tech: Janelle Guajardo RDCS APPROVED REPORT EXAM: Two-dimensional and M-mode echocardiogram with Doppler and color Doppler. Other Information Quality : Good INDICATION Chest Pain 2D DIMENSIONS RVDd3.3 (2.9-3.5cm)Left Atrium(2D)3.5 (1.6-4.0cm) IVSd1.1 (0.7-1.1cm)Aortic Root(2D)2.9 (2.0-3.7cm) LVDd4.2 (3.9-5.9cm)LVOT Diameter2.1 (1.8-2.4cm) PWd0.9 (0.7-1.1cm)LVDs1.9 (2.5-4.0cm) FS (%) 30.0 %SV68.0 ml LVEF(%)60.0 (>50%) Aortic Valve AoV Peak Jose.120.5cm/sAoV VTI22.7cm AO Peak GR.5.8mmHgLVOT Peak Jose.103.9cm/s LVOT VTI 21.80cmAO Mean GR.3mmHg BRIDGET (VMAX)2.86go3RUX (VTI)3.29cm2 Mitral Valve MV E Pzlcfwgv85.9cm/sMV DECEL ESCR772ia MV A Qipmlske65.8cm/sE/A Ratio0.8 Tricuspid Valve TR P. Rtqtygra366xj/sRAP CZVDYSGN3wuLf TR Peak Gr.90fwGnZCUI48wbCt Pulmonary Vein S1 Vqzoypyq83.5cm/sD2 Ionmnqlc46.0cm/s LEFT VENTRICLE The left ventricle is normal size. There is normal left ventricular wall thickness. The left ventricu lar systolic function is normal and the ejection fraction is within normal range. The Ejection Fracti on is 55-60%. There is normal LV segmental wall motion. Transmitral Doppler flow pattern is Grade I-a bnormal relaxation pattern. RIGHT VENTRICLE The right ventricle is normal size. The right ventricular systolic function is normal. ATRIA The left atrium size is normal. The right atrium size is normal. The interatrial septum is intact wit h no evidence for an atrial septal defect or patent foramen ovale as noted on 2-D or Doppler imaging. AORTIC VALVE The aortic valve is calcified but opens well. Doppler and Color Flow revealed no significant aortic r egurgitation. There is no significant aortic valvular stenosis. MITRAL VALVE The mitral valve is normal in structure and function. There is no evidence of mitral valve prolapse. There is no mitral valve stenosis. Doppler and Color-flow revealed trace to mild mitral regurgitation . TRICUSPID VALVE The tricuspid valve is normal in structure and function. Doppler and Color Flow revealed trace tricus pid regurgitation. The PA pressure was estimated at 14 mmHg. There is no tricuspid valve stenosis. PULMONIC VALVE The pulmonic valve is not well visualized. Doppler and Color Flow revealed trace pulmonic valvular re gurgitation. There is no pulmonic valvular stenosis. GREAT VESSELS The aortic root is normal in size. The ascending aorta is normal in size. The IVC is normal in size a nd collapses >50% with inspiration. PERICARDIAL EFFUSION There is no evidence of significant pericardial effusion. Critical Notification Critical Value: No <Conclusion> The left ventricle is normal size. The left ventricular systolic function is normal and the ejection fraction is within normal range. The Ejection Fraction is 55-60%. There is no significant aortic valvular stenosis. Doppler and Color Flow revealed no significant aortic regurgitation. Doppler and Color-flow revealed trace to mild mitral regurgitation. Doppler and Color Flow revealed trace tricuspid regurgitation. The PA pressure was estimated at 14 mmHg. Signed by : Zach Maguire MD Electronically Approved : 07/07/2018 18:19:20
[2018-07-07 19:30] VITALS: BP 160/89
[2018-07-07] MEDS: SIMVASTATIN 40 MG TABLET. PO SCH (20:22)
[2018-07-07 20:24] VITALS: BP 131/82
[2018-07-07 22:39] VITALS: BP 125/78
[2018-07-08 02:59] LABS: HEMOGLOBIN A1C 6.1 % (4.8-5.6)
[2018-07-08 05:32] VITALS: BP 127/81
[2018-07-08] MEDS: LEVOTHYROXINE 125 MCG TABLET PO SCH (05:40)
[2018-07-08 06:13] LABS: CALCIUM 9.7 mg/dL (8.5-10.1); CREATININE 0.9 mg/dL (0.6-1.0); GFR 64.5; POTASSIUM 3.4 mmol/L (3.5-5.1)
[2018-07-08] MEDS: REGADENOSON 0.4 MG/5 ML DISP.SYRIN. IV ONE ×2 (09:00→11:17)
--- NOTE | 2018-07-08 09:17 | PDOC ---
PROGRESS NOTES Diagnosis Problem Problems Medical Problems: (1) Acute chest pain Status: Acute (2) Elevated d-dimer Status: Acute (3) Hyperglycemia Status: Acute (4) Hypokalemia Status: Acute (5) Hypomagnesemia Status: Acute Assessment Problems Medical Problems: (1) Acute chest pain Status: Acute (2) Elevated d-dimer Status: Acute (3) Hyperglycemia Status: Acute (4) Hypokalemia Status: Acute (5) Hypomagnesemia Status: Acute 1. chest pain - MT ruled out. normal LV function and wall motion by echo. MPI pending. Continue current medications to include beta halley, aspirin, statin as well as RF reduction to include diet, exercise, low sodium. 2. abn ekg - no acute ischemic changes, MPI pending 3. HTN - controlled on current meds. 4. HLD -lipids pending., continue statin. 5. prediabetes - per IM 6. hypokalemia - replacement Continue medical mgmt. If MPI without significant abnormalities could discharge from CV perspective with outpatient follow up. Event monitoring outpatient. follow up Appt scheduled 08/10/18 in office. Subjective no more chest pain, no dyspnea, ready for stress test, no lightheadedness or palpitations. Objective Vital Signs Date Time Temp Pulse Resp B/P (MAP) Pulse Ox O2 Delivery O2 Flow Rate FiO2 07/08/18 07:46 Room Air 07/08/18 05:32 98.1 83 20 127/81 (96) 97 07/07/18 22:39 2.0 Intake and Output 07/08/18 07:00 Intake Total 1120 ml Balance 1120 ml Intake Oral 1120 ml # Voids 2 Abdomen: Normal bowel sounds, Soft, No tenderness Heart: Regular rate, Normal S1, Normal S2, No murmurs Extremities: No cyanosis, No edema, Normal pulses General: Alert, Oriented X3, Cooperative, No acute distress Lungs: Clear to auscultation, Normal air movement Neuro: Normal speech, Strength at 5/5 X4 ext Psych/Mental Status: Mental status NL, Mood NL Review of Relevant I have reviewed the following items marcella (where applicable) has been applied. Labs Laboratory Tests Test 07/06/18 16:23 07/06/18 20:15 07/06/18 22:13 07/07/18 04:26 White Blood Count 8.9 x10^3/uL (4.0-11.0) 8.6 x10^3/uL (4.0-11.0) Red Blood Count 4.44 x10^6/uL (3.50-5.40) 4.38 x10^6/uL (3.50-5.40) Hemoglobin 13.4 g/dL (12.0-15.5) 13.3 g/dL (12.0-15.5) Hematocrit 40.2 % (36.0-47.0) 39.7 % (36.0-47.0) Mean Corpuscular Volume 91 fL (79-100) 91 fL (79-100) Mean Corpuscular Hemoglobin 30 pg (25-35) 30 pg (25-35) Mean Corpuscular Hemoglobin Concent 33 g/dL (31-37) 34 g/dL (31-37) Red Cell Distribution Width 14.8 % (11.5-14.5) 14.7 % (11.5-14.5) Platelet Count 249 x10^3/uL (140-400) 236 x10^3/uL (140-400) Neutrophils (%) (Auto) 55 % (31-73) 53 % (31-73) Lymphocytes (%) (Auto) 33 % (24-48) 36 % (24-48) Monocytes (%) (Auto) 8 % (0-9) 7 % (0-9) Eosinophils (%) (Auto) 3 % (0-3) 4 % (0-3) Basophils (%) (Auto) 0 % (0-3) 0 % (0-3) Neutrophils # (Auto) 4.9 x10^3uL (1.8-7.7) 4.6 x10^3uL (1.8-7.7) Lymphocytes # (Auto) 3.0 x10^3/uL (1.0-4.8) 3.1 x10^3/uL (1.0-4.8) Monocytes # (Auto) 0.7 x10^3/uL (0.0-1.1) 0.6 x10^3/uL (0.0-1.1) Eosinophils # (Auto) 0.3 x10^3/uL (0.0-0.7) 0.3 x10^3/uL (0.0-0.7) Basophils # (Auto) 0.0 x10^3/uL (0.0-0.2) 0.0 x10^3/uL (0.0-0.2) D-Dimer (Tawny) 0.53 mg/L (0.00-0.50) Sodium Level 141 mmol/L (136-145) 143 mmol/L (136-145) Potassium Level 3.0 mmol/L (3.5-5.1) 4.0 mmol/L (3.5-5.1) Chloride Level 101 mmol/L (98-107) 102 mmol/L (98-107) Carbon Dioxide Level 33 mmol/L (21-32) 34 mmol/L (21-32) Anion Gap 7 (6-14) 7 (6-14) Blood Urea Nitrogen 18 mg/dL (7-20) 18 mg/dL (7-20) Creatinine 0.9 mg/dL (0.6-1.0) 0.9 mg/dL (0.6-1.0) Estimated GFR (Cockcroft-Gault) 64.5 64.5 BUN/Creatinine Ratio 20 (6-20) 20 (6-20) Glucose Level 196 mg/dL (70-99) 112 mg/dL (70-99) Calcium Level 9.5 mg/dL (8.5-10.1) 9.7 mg/dL (8.5-10.1) Magnesium Level 1.7 mg/dL (1.8-2.4) Total Bilirubin 0.7 mg/dL (0.2-1.0) 0.8 mg/dL (0.2-1.0) Aspartate Amino Transf (AST/SGOT) 37 U/L (15-37) 34 U/L (15-37) Alanine Aminotransferase (ALT/SGPT) 58 U/L (14-59) 53 U/L (14-59) Alkaline Phosphatase 88 U/L (46-116) 80 U/L (46-116) Creatine Kinase 138 U/L (26-192) Troponin I Quantitative < 0.017 ng/mL (0-0.055) < 0.017 ng/mL (0-0.055) < 0.017 ng/mL (0-0.055) YX-Jcr-Q-Type Natriuretic Peptide 19 pg/mL (0-124) Total Protein 8.1 g/dL (6.4-8.2) 7.6 g/dL (6.4-8.2) Albumin 3.9 g/dL (3.4-5.0) 3.5 g/dL (3.4-5.0) Albumin/Globulin Ratio 0.9 (1.0-1.7) 0.9 (1.0-1.7) Lipase 122 U/L (73-393) Glucose (Fingerstick) 94 mg/dL (70-99) Hemoglobin A1c 6.1 % (4.8-5.6) Triglycerides Level 109 mg/dL (0-150) Cholesterol Level 212 mg/dL (0-200) LDL Cholesterol, Calculated 147 mg/dL (0-100) VLDL Cholesterol, Calculated 21 mg/dL (0-40) Non-HDL Cholesterol Calculated 168 mg/dL (0-129) HDL Cholesterol 44 mg/dL (40-60) Cholesterol/HDL Ratio 4.0 Test 07/08/18 05:42 Sodium Level 139 mmol/L (136-145) Potassium Level 3.4 mmol/L (3.5-5.1) Chloride Level 102 mmol/L (98-107) Carbon Dioxide Level 34 mmol/L (21-32) Anion Gap 3 (6-14) Blood Urea Nitrogen 21 mg/dL (7-20) Creatinine 0.9 mg/dL (0.6-1.0) Estimated GFR (Cockcroft-Gault) 64.5 Glucose Level 120 mg/dL (70-99) Calcium Level 9.7 mg/dL (8.5-10.1) Medications Current Medications Potassium Chloride (Klor-Con) 40 meq 1X ONCE PO Last administered on at 17:30; Start 07/06/18 at 17:30; Stop 07/06/18 at 17:31; Status DC Magnesium Oxide (Magnesium Oxide) 400 mg 1X ONCE PO Last administered on at 18:06; Start 07/06/18 at 17:30; Stop 07/06/18 at 17:31; Status DC Iohexol (Omnipaque 300 Mg/ml) 75 ml 1X ONCE IV Last administered on 07/06/18at 18:01; Start 07/06/18 at 17:45; Stop 07/06/18 at 17:53; Status DC Info (Do NOT chart on this entry -- for MONITORING) 1 each PRN DAILY PRN MC SEE COMMENTS; Start 07/06/18 at 18:00; Stop 07/08/18 at 17:59 Acetaminophen (Tylenol) 500 mg PRN Q6HRS PRN PO PAIN / TEMP Last administered on 07/07/18at 13:12; Start 07/06/18 at 21:30 Metoprolol Succinate (Toprol Xl) 25 mg BID PO Last administered on 07/07/18at 20 :22; Start 07/06/18 at 21:30 Potassium Chloride (Klor-Con) 20 meq TID PO Last administered on 07/07/18at 20: 21; Start 07/06/18 at 21:30 Simvastatin (Zocor) 40 mg HS PO Last administered on 07/07/18at 20:22; Start at 21:30 Aspirin (Aspirin Enteric Coated) 81 mg DAILYWBKFT PO Last administered on at 10:30; Start 07/07/18 at 08:00 Pantoprazole Sodium (Protonix) 40 mg QODAY PO Last administered on 07/07/18at 10 :30; Start 07/07/18 at 09:00 Indapamide (Lozol) 5 mg DAILY PO Last administered on 07/07/18at 10:31; Start at 09:00 Losartan Potassium (Cozaar) 50 mg DAILY PO Last administered on 07/07/18at 10:30 ; Start 07/07/18 at 09:00 Levothyroxine Sodium (Synthroid) 125 mcg DAILY07 PO Last administered on at 05:40; Start 07/07/18 at 07:00 Polyethylene Glycol (miraLAX) 17 gm DAILY PO ; Start 07/07/18 at 09:00 Influenza Virus Vaccine (Afluria Trivalent [id number] Syringe) 0.5 ml ONCE ONCE VAX IM Last administered on 07/07/18at 10:49; Start 07/07/18 at 09:00; Stop at 09:01; Status DC Regadenoson (Lexiscan) 0.4 mg 1X ONCE IV ; Start 07/08/18 at 09:00; Stop at 09:01; Status DC Active Scripts Active Metoprolol Succinate ( Xl ) (Metoprolol Succinate) 25 Mg Tab.er.24h 25 Mg PO BID Reported Indapamide 2.5 Mg Tablet 5 Mg PO DAILY Klor-Con M20 (Potassium Chloride) 20 Meq Tab.er.prt 20 Meq PO TID Centrum Complete Multivit Tab (Multivitamin/Iron/Folic Acid) 1 Each Tablet 1 Each PO Miralax (Polyethylene Glycol 3350) 17 Gm Powd.pack 1 Packet PO DAILY Nexium Capsule (Esomeprazole Magnesium) 40 Mg Capsule.dr [place]gu[place] Cap PO QODAY Avapro (Irbesartan) 150 Mg Tablet 150 Mg PO DAILY LAST DOSE GIVEN: DATE: TODAY TIME: AM NEXT DOSE DUE: DATE: TOMORROW TIME: AM Levothyroxine Sodium 125 Mcg Tablet 125 Mcg PO DAILY07 LAST DOSE GIVEN: DATE: TODAY TIME: BEFORE BREAKFAST NEXT DOSE DUE: DATE: TOMORROW TIME: BEFORE BREAKFAST Zocor (Simvastatin) 40 Mg Tablet 40 Mg PO HS Aspirin Ec (Aspirin) 81 Mg Tablet. 1 Tab PO DAILY LAST DOSE GIVEN: DATE: TODAY TIME: AM NEXT DOSE DUE: DATE: TOMORROW TIME: AM Vitals/I & O Vital Sign - Last 24 Hours 07/07/18 07/07/18 07/07/18 07/07/18 10:28 10:30 10:31 16:36 Temp 97.5 98.2 Pulse 68 68 68 65 Resp 20 18 B/P (MAP) 134/83 (100) 134/83 134/83 122/81 (95) Pulse Ox 95 94 O2 Delivery Nasal Cannula Room Air O2 Flow Rate 2.0 07/07/18 07/07/18 07/07/18 07/07/18 19:30 19:30 20:22 20:24 Temp 98.3 Pulse 79 67 67 Resp 18 B/P (MAP) 160/89 (112) 131/82 131/82 (98) Pulse Ox 92 O2 Delivery Room Air Room Air 07/07/18 07/08/18 07/08/18 22:39 05:32 07:46 Temp 98.1 98.1 Pulse 59 83 Resp 20 20 B/P (MAP) 125/78 (94) 127/81 (96) Pulse Ox 97 97 O2 Delivery Nasal Cannula Room Air Room Air O2 Flow Rate 2.0 Intake and Output 07/07/18 07/07/18 07/08/18 15:00 23:00 07:00 Intake Total 470 ml 650 ml 0 ml Balance 470 ml 650 ml 0 ml BOB HAWKINS APRN Jul 08, 2018 09:17
[2018-07-08] MEDS: METOPROLOL SUCC 24HR ER 25 MG TAB.ER.24H. PO SCH (10:01)
[2018-07-08] MEDS: LOSARTAN 50 MG TABLET. PO SCH (10:01)
[2018-07-08] MEDS: ASPIRIN ENTERIC COATED 81 MG TABLET.DR. PO SCH (10:02)
[2018-07-08] MEDS: POLYETHYLENE GLYCOL 3350 17 GM PACKET. PO SCH (10:02)
[2018-07-08] MEDS: POTASSIUM CHLORIDE 20 MEQ TABLET.ER. PO SCH (10:02)
[2018-07-08] MEDS: INDAPAMIDE 1.25 MG TABLET PO SCH (10:04)
[2018-07-08 10:35] VITALS: BP 137/85
--- NOTE | 2018-07-08 11:58 | RAD ---
MR#: [id number] Date of Study: 07/08/2018 Ordering Physician: BOB HAWKINS, Referring Physician: TR BEJARANO Tech: RT Anjel Quintero) (N) APPROVED REPORT Test Type: Pharmacological Stress Nurse/Tech: RT Leon (Carl) (N) Test Indications: chest pain Cardiac History: hypertension Medications: see EHR Medical History: see EHR Resting ECG: SR RBBB no acute changes, mild QT prolongation Resting Heart Rate: 71 bpm Resting Blood Pressure: 161/83mmHg Pretest Chest Pain: None Nurse/Tech Notes Consent: The procedure was explained to the patient in lay terms. Informed consent was witnessed. Calvin eout was entered into [employer]. History and Stress Test performed by RT Anjel Quintero) (N) Pharm. Details Pharmacologic stress testing was performed using 0.4mg per 5ml of regadenoson given intravenously ove r 7-10 seconds. POST EXERCISE Reason for Termination: Infusion complete Max HR: 140 bpm Chest Pain: No. INTERPRETATION Stress EKG Conclusion: Baseline EKG showed sinus rhythm with RBBB. No ischemic changes at peak stres s. No arrhythmias. Imaging Protocol IMAGE PROTOCOL: Rest Tc-99m/stress Tc-99m 1 day Rest: Stress: Viability: Radiopharm.Tc99m [id number] Sestamibi Dose10.4mCi 33.7mCi Duration 20min. 15min. Img Date 07/08/2018 07/08/2018 Inj-Img [id number]. 60min. Rest Admin Site:IV - Right HandAdministrator: RT Leon (R)(N) Stress Admin Site: IV - Right HandAdministrator: RT Anjel Quintero)(N) STRESS DATA End Diast. Vol.89.0mlAv. Heart Rate82.0bpm LVEDV index BSA2.0mlCardiac Output0.1L/min End Syst. Vol.24.0mlCO Index BSA5.4L/min LVESV index BSA0.0mlMyocardial Zttd412.0g Eject. Dbfolkca35.0% Stress Rates Pk. Fill Rate4.12EDV/secLVtime Pk. Fill 211.57msec Pk. Empty Rate4.69ESV/secLVtime Pk. Lmhro125.97msec /3 Pk. Fill1.19EDV/sec Stress Scores Regional WT0.00Summed WT0.00 Regional WM0.00Summed WM1.00 Study quality was good. Left Ventricular size was Normal at Rest and Stress. Lung uptake was . Left Ventricular ejection fraction is 73%. The rest and stress images show normal perfusion, normal contraction and thickening. LV Perf. Quant 17 Seg. SSS0.00 17 Seg. SRS0.00 17 Seg. SDS0.00 Stress Defect Extent (% LAD)0.00Rest Defect Extent (% LAD)1.90Rev. Defect Extent (% LAD)0.00 Stress Defect Extent (% LCX) 0.00Rest Defect Extent (% LCX)0.00Rev. Defect Extent (% LCX)0.00 Stress Defect Extent (% RCA)0.00Rest Defect Extent (% RCA)0.00Rev. Defect Extent (% RCA)0.00 Stress Defect Extent (% MARY KATE)0.00Rest Defect Extent (% MARY KATE)1.70Rev. Defect Extent (% MARY KATE)0.00 Conclusion 1. Regadenoson cardioisotope stress test did not show any evidence of ischemia or infarct. 2. Normal left ventricular systolic function with ejection fraction calculated at 73%. 3. Low risk for cardiac events. Signed by : Jace Tan, Electronically Approved : 07/08/2018 11:56:43
--- NOTE | 2018-07-08 21:04 | DS ---
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 She was working when the patient had a sudden onset of chest pressure radiating to her back. She became nauseous, shortness of breath, and her face became flushed. Symptoms forced her to stop working and leave the treatment room. The dentist checked her blood pressure, which she says was markedly elevated at that time and I urged her to go to the Emergency Room for evaluation. She did not want to go by ambulance and she called her spouse, who came, picks her up and the symptoms lasted approximately 20 minutes and resolved prior to arriving at the Emergency Room. While in the Emergency Room, her EKG reportedly showed normal sinus rhythm at a rate of 90 beats per minute with prolonged QT with nonspecific ST-T changes that apparently has not changed compared to an EKG done about 2 years ago. Her chest x-ray was unremarkable. Her potassium was low at 3 mEq per liter. Magnesium was 1.7. D-dimer was ____. Because of her symptoms and risk factors, she was admitted for further evaluation and Cardiology consult. She has 3 sets of cardiac enzymes that were all negative. She has had nuclear stress test, which basically showed that the stress test did not show any evidence of ischemia or infarct, normal left ventricular systolic function with ejection fraction of approximately 73% and the study was considered low-risk for cardiac event. She was found to be hypokalemic and hypomagnesemic and her potassium and magnesium was replenished. The patient was instructed to continue taking her potassium as directed and was given a prescription for magnesium. PHYSICAL EXAMINATION: GENERAL: When I examined her this afternoon, she looked well and was clearly in no apparent respiratory distress, pale, but no jaundice, cyanosis, or thyromegaly. No jugular venous distention. No lower limb edema. VITAL SIGNS: Her heart rate was 92, blood pressure was 137/85. Her temperature was 97.7, respiratory rate was 18 and oxygen saturation was 96%. HEAD, EYES, EARS, NOSE AND THROAT: Showed normocephalic, atraumatic. NECK: Supple. HEART: Showed normal first and second sounds. No gallop, rub or murmur. CHEST: Clear to auscultation. No crepitation or rhonchi. ABDOMEN: Distended, soft, nontender. NEUROLOGIC: She is awake, alert, responding appropriately. All cranial nerves are intact. She moves extremities without difficulty. She ambulates without assistance or assistive devices. LABORATORY DATA: Her lab work showed that she has 3 sets of cardiac enzymes that were negative and showed troponin to be less than 0.017. Her serum triglycerides were 109. Total cholesterol was 212. LDL cholesterol was 147. VLDL was 21 and HDL cholesterol was 44. The ratio was 4. Her serum sodium was 139, potassium 3.4, chloride 102, bicarbonate 34, anion gap of 3, BUN 21, creatinine 0.9. Estimated GFR was 64 mL per minute. Her glucose 120, calcium was 9.7. Her hemoglobin A1c was 6.1%. DISCHARGE MEDICATIONS: She was discharged home to continue on aspirin 81 mg once a day, Nexium 40 mg once a day, indapamide 2.5 mg once a day, irbesartan for Avapro 150 mg daily, levothyroxine 125 mcg once a day, metoprolol 25 mg extended release once a day, multivitamin with mineral 1 tablet once a day, polyethylene glycol 17 grams daily, potassium chloride 20 mEq 3 times a day and simvastatin 40 mg at bedtime. She is also on magnesium oxide 400 mg twice a day. FINAL DISCHARGE DIAGNOSES: 1. Chest pain, myocardial infarction ruled out. 2. Hypokalemia, resolved. 3. Hypomagnesemia, resolved. She also does have elevated D-dimer; however, CT angio of the chest showed no evidence of pulmonary emboli. The patient was given a prescription for magnesium oxide, advised to continue all other medication. Follow with her primary care physician. FINAL DIAGNOSES: Chest pain, myocardial infarction ruled out. She has hypertension, hyperlipidemia, morbid obesity, obstructive sleep apnea, hypothyroidism and gastroesophageal reflux disease. DREW PERKINS MD DR: PAYAL/monster JOB#: [id number] / [id number]
== END 2018-07-08 13:13 | disposition home or self-care (01) | DRG 313 ==
LOC: ER 16:01 → 1 SOUTH 17:55 → ER 19:15
PROVIDERS: ADMIT Neuromusculoskeletal Medicine & OMM; ATTEND Neuromusculoskeletal Medicine & OMM
DX: R07.9 Chest pain, unspecified (principal); E03.9 Hypothyroidism, unspecified; E66.01 Morbid (severe) obesity due to excess calories; I50.9 Heart failure, unspecified; G47.33 Obstructive sleep apnea (adult) (pediatric); E87.6 Hypokalemia; E83.42 Hypomagnesemia; K21.9 Gastro-esophageal reflux disease without esophagitis; R73.9 Hyperglycemia, unspecified; R73.03 Prediabetes; I11.0 Hypertensive heart disease with heart failure; E78.5 Hyperlipidemia, unspecified; Z82.49 Family history of ischemic heart disease and other diseases of the circulatory system; Z79.899 Other long term (current) drug therapy; Z68.35 Body mass index [BMI] 35.0-35.9, adult; Z83.3 Family history of diabetes mellitus; Z87.891 Personal history of nicotine dependence; Z90.710 Acquired absence of both cervix and uterus; Z23 Encounter for immunization
CPT/HCPCS: 36415; 71045; 71275; 78452; 80048; 80053; 80061; 82550; 82947; 83036; 83690; 83735; 83880; 84443; 84484; 85025; 85379; 90471; 90756; 93005; 93017; 93306; 96374; 96375; 96376; A9500; J2785; Q9967; 99285-25; Q2035

== ENCOUNTER → 2019-01-17 | Outpatient (CLI) | payer BC ==
[~2019-01-17] MED LIST changes: +ALBU2.5V8 IH; -ALBU8.5H8 IH; +HYDR-3165 PO; -HYDR-971 PO; +POTA20TA4 PO
--- NOTE | 2019-01-17 12:56 | RAD ---
Exam: Right Upper Quadrant Ultrasound 01/17/2019 10:07 AM Indication: Elevated LFTs Technique: Multiple realtime grayscale sonographic images were obtained over the abdomen. Static images were submitted for interpretation. Comparisons: Abdominal ultrasound March 02, 2017 Findings: Visualized portions of the pancreas are unremarkable. The IVC is patent. Liver is mildly enlarged measuring 19 cm longitudinally. The liver is mildly diffusely echogenic suggesting hepatic steatosis. No focal hepatic lesions are identified. The gallbladder is nondistended. There is no evidence for cholelithiasis. There is no wall thickening, or pericholecystic fluid. The common bile duct is within normal limits measuring 3 mm in diameter. The Right kidney is normal in size measuring 11.3cm. There is no evidence for mass, nephrolithiasis, or hydronephrosis Impression: Mild hepatomegaly. Probable hepatic steatosis Electronically signed by: Taj Vega MD (01/17/2019 12:53 PM) [id number]
== END | disposition home or self-care (01) ==
LOC: US 08:38
PROVIDERS: ATTEND Nurse Practitioner Family
DX: R16.0 Hepatomegaly, not elsewhere classified (principal); R94.5 Abnormal results of liver function studies
CPT/HCPCS: 76705

== ENCOUNTER → 2019-12-19 | Outpatient (CLI) | payer BC ==
[~2019-12-19] MED LIST changes: -IBUP-1227 PO; +IBUP-1673 PO; -VALA1000 PO; +VALA10008 PO
--- NOTE | 2019-12-19 17:19 | RAD ---
EXAM: Lumbar spine, 3 views. HISTORY: Pain. Radiculopathy. COMPARISON: None. FINDINGS: 3 views of the lumbar spine are obtained. There is no significant listhesis. The vertebral bodies are normal in height. There is degenerative facet arthropathy at the mid lower lumbar levels, primarily the lumbosacral junction. IMPRESSION: 1. Degenerative facet arthropathy primarily the lumbosacral junction. 2. No acute osseous finding. Electronically signed by: Taryn Paniagua MD (12/19/2019 5:16 PM) [id number]
== END | disposition home or self-care (01) ==
LOC: DXRAD 15:37
PROVIDERS: ATTEND Family Medicine
DX: M47.27 Other spondylosis with radiculopathy, lumbosacral region (principal)
CPT/HCPCS: 72100